=== PATIENT | female | born 1955 | race Caucasian/White ===

== ENCOUNTER 2017-07-10 09:30 | Inpatient (IN) | payer OTHER ==
[~2017-07-10] VITALS: Ht 160 cm; Wt 86.2 kg
[2017-07-10] MEDS ORDERED: AVAPRO300 MG PO (10:22)
[2017-07-10] MEDS ORDERED: PLAVIX75 MG PO (10:23)
[2017-07-10] MEDS ORDERED: ZOCOR40 MG PO (10:23)
[2017-07-10] MEDS ORDERED: FORTAMET1000 MG PO (10:23)
[2017-07-10] MEDS ORDERED: SYNTHROID100 MCG PO (10:24)
[2017-07-19] MEDS ORDERED: PERCOCET 5-3251 EACH PO (18:59)
[2017-07-19] MEDS ORDERED: DUI500 PO (18:59)
[2017-07-19] MEDS ORDERED: XARELTO10 MG PO (18:59)
== END 2017-07-19 19:14 | DRG 470 ==
LOC: O/R 07-17 05:16 → SURH 07-17 05:16
PROVIDERS: Orthopaedic Surgery
PROC: 0SRB0JZ Replacement of Left Hip Joint with Synthetic Substitute, Open Approach (ICD-10-PCS; principal; 2017-07-17 13:00)
DX: M16.12 Unilateral primary osteoarthritis, left hip (principal); I10 Essential (primary) hypertension; E11.9 Type 2 diabetes mellitus without complications; E66.8 Other obesity; M81.0 Age-related osteoporosis without current pathological fracture

== ENCOUNTER 2018-11-21 08:29 | Outpatient (CLI) | payer OTHER ==
[~2018-11-21 08:29] MED LIST: AVAPRO300 MG PO; DUI500 PO; FORTAMET1000 MG PO; PERCOCET 5-3251 EACH PO; PLAVIX75 MG PO; SYNTHROID100 MCG PO; XARELTO10 MG PO; ZOCOR40 MG PO
== END 2018-11-21 08:40 | disposition home or self-care (01) ==
LOC: NUCLEAR 08:29
DX: I20.1 Angina pectoris with documented spasm (principal)